=== PATIENT | male | born 1945 | race Caucasian/White ===

== ENCOUNTER → 2017-10-12 | Outpatient (CLI) | payer OTHER ==
--- NOTE | 2017-10-21 14:48 | RADIOLOGY REPORT (SQ) ---
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 RADIONUCLIDE AND DOSE: 10.0 mCi F18 FDG The route of agent administration: Intravenous FASTING BLOOD SUGAR: 77 mg/dl CONTRAST TYPE AND DOSE: No CT contrast given. TECHNIQUE: Blood glucose level was verified. Above dose of FDG was injected intravenously. 2-D seg mented attenuation correction images were obtained from the base of the skull to the midthighs. Nonc ontrast CT images were obtained for attenuation correction and fusion with emission images. CT image s were performed without oral or intravenous contrast and are not sensitive for parenchymal lesions. A series of overlapping emission PET images were obtained. Images reviewed and manipulated at [facility] work station by the radiologist. Images stored on PACS. LIMITATIONS: None. FINDINGS: HEAD AND NECK: No areas of abnormal metabolic activity in the soft tissues of the head and neck. CHEST: Emphysematous changes with parenchymal scarring. 7 mm spiculated lesion in the right upper lo be (series 3, image 75). Mean SUV value 0.55. ABDOMEN AND PELVIS: No areas of abnormal metabolic activity in the abdomen or pelvis. Expected physi ologic activity is present in the genitourinary system and bowel. PROXIMAL LOWER EXTREMITIES: No areas of abnormal metabolic activity in the soft tissues of the lower extremities. BONES: No abnormal metabolic activity in the visualized skeleton. ADDITIONAL CT FINDINGS: Soft tissue/ fluid in the maxillary sinuses. Colonic diverticulosis. OTHER: Background blood pool activity mean SUV value 1.33. Background liver activity mean SUV value 2.05. IMPRESSION: 1. EMPHYSEMATOUS CHANGES IN THE LUNGS WITH SCARRING. 7 MM SPICULATED LESION IN THE RIGHT UPPER LOBE WITH NO ABNORMAL ACTIVITY (MEAN SUV VALUE 0.55). THIS MAY REPRESENT A FOCAL AREA OF SCARRING. FOLLO W-UP LOW-DOSE CT IMAGING IN 3 MONTHS MAY BE CONSIDERED TO EVALUATE FOR STABILITY. 2. REMAINDER OF THE PET SCAN IS UNREMARKABLE. INCIDENTAL CT FINDINGS ABOVE. TECHNICAL DOCUMENTATION: JOB ID: [id number] [employer]- All Rights Reserved Reading location - IP/workstation name: [email or web address]
== END ==
LOC: RAD 18:19
PROVIDERS: ATTEND Physician Assistant Medical
DX: C34.91 Malignant neoplasm of unspecified part of right bronchus or lung (principal); J43.9 Emphysema, unspecified
CPT/HCPCS: 78815; A9552